=== PATIENT | female | born 1995 | race Caucasian/White ===

== ENCOUNTER → 2023-05-23 | Emergency (ER) | payer MEDICAID ==
[~2023-05-23] MED LIST: Rabies Vaccine Human 2.5 UNITS VIAL IM ONE
== END ==
LOC: CSHERS 06:25
DX: Z23 Encounter for immunization (principal)
CPT/HCPCS: 90471; 90675

== ENCOUNTER → 2023-05-27 | Day surgery (SDC) | payer MEDICAID | LOC: CSHSDC/OP 06:23 → CSHER/OP 06:23 | PROVIDERS: ATTEND Student in an Organized Health Care Education/Training Program | DX: Z23 Encounter for immunization (principal) | CPT/HCPCS: 90471; 90675 ==